=== PATIENT | male | born 1955 | race Hispanic/Latino ===

== ENCOUNTER 2018-02-12 17:05 | Emergency (ER) | payer MEDICARE ==
[~2018-02-12] VITALS: Ht 165.1 cm; Wt 79.4 kg
--- NOTE | 2018-02-12 19:04 | Diagnostic Imaging Report ---
Exam: Left Ankle Series. History: Ankle swelling and pain, no history of trauma Comparison: None. DISCUSSION: 3 views of the left ankle. There is decreased bone mineralization, which limits evaluation of the bony structures.. No acute, displaced fracture or dislocation. Ankle mortise is preserved.No osteochondral lesion. No abnormal soft tissue calcification or mass. Large inferior calcaneal enthesophyte. Soft tissue swelling in the lateral aspect of the ankle. IMPRESSION: 1. Exam limited by decreased bone mineralization. 2. Soft tissue swelling in the lateral aspect of the ankle, without underlying acute bony abnormality. The staff physician below has personally reviewed this exam on the date of dictation. Signed by: Dr. Jose Alfredo Reina M.D. on 02/12/2018 7:00 PM
== END 2018-02-12 20:34 | disposition home or self-care (01) ==
LOC: ER 17:05
DX: M25.572 Pain in left ankle and joints of left foot (principal); M25.472 Effusion, left ankle; M10.072 Idiopathic gout, left ankle and foot; R26.2 Difficulty in walking, not elsewhere classified
CPT/HCPCS: 36415; 84550; 99283

== ENCOUNTER 2021-03-26 16:21 | Emergency (ER) | payer MEDICARE ==
[~2021-03-26] VITALS: Ht 162.6 cm; Wt 83.9 kg
[2021-03-26 17:18] LABS: BASOPHILS # (AUTO) 0.1 (0.0-0.1); BASOPHILS % 0.8 % (0.0-1.0); EOSINOPHILS # (AUTO) 0.2 (0.0-0.4); EOSINOPHILS % 2.5 % (0.0-6.0); HEMATOCRIT 39.2 % (38.2-49.6); HEMOGLOBIN 12.8 g/dL (14.0-18.0); LYMPHOCYTES # (AUTO) 0.9 (1.0-3.2); LYMPHOCYTES % 12.3 % (18.0-39.1); MEAN CORPUSCULAR HEMOGLOBIN 27.4 pg (28-32); MEAN CORPUSCULAR HGB CONC 32.7 g/dL (31-35); MEAN CORPUSCULAR VOLUME 83.8 fL (81-99); MONOCYTES # (AUTO) 0.6 (0.2-0.8); MONOCYTES % 8.1 % (4.4-11.3); NEUTROPHILS # (AUTO) 5.5 (2.1-6.9); NEUTROPHILS % 76.2 % (38.7-80.0); PLATELET COUNT 170 x10e3/uL (140-360); RED BLOOD COUNT 4.68 x10e6/uL (4.3-5.7); RED CELL DISTRIBUTION WIDTH 13.4 % (11.7-14.4)
[2021-03-26 17:34] LABS: ALBUMIN 3.7 g/dL (3.5-5.0); ALBUMIN/GLOBULIN RATIO 1.2 (0.8-2.0); ANION GAP 15.4 mmol/L (8-16); CREATININE, SERUM 1.17 mg/dL (0.72-1.25); POTASSIUM 3.4 mmol/L (3.5-5.1)
[2021-03-26 18:18] LABS: CLARITY,URINE SL CLOUDY (CLEAR); COLOR,URINE AMBER (YELLOW); KETONES,URINE 1+ (NEGATIVE); LEUKOCYTE ESTERASE ,URINE NEGATIVE (NEGATIVE); NITRITE,URINE NEGATIVE (NEGATIVE); PROTEIN,URINE DIPSTICK 1+ (NEGATIVE); URINE UROBILINOGEN 0.2 mg/dL (0.2 - 1)
[2021-03-26 18:21] LABS: BACTERIA,URINE MODERATE /HPF
[2021-03-26 18:22] LABS: MUCUS,URINE MODERATE (RARE)
== END 2021-03-26 18:17 | disposition home or self-care (01) ==
LOC: ER 16:58
DX: R10.11 Right upper quadrant pain (principal); I10 Essential (primary) hypertension; I25.2 Old myocardial infarction; I25.10 Atherosclerotic heart disease of native coronary artery without angina pectoris; Z94.1 Heart transplant status
CPT/HCPCS: 36415; 80053; 81001; 85025; 99283